=== PATIENT | female | born 1995 ===

== ENCOUNTER → 2017-04-02 | Outpatient (REF) | LOC: WSOH 09:08 | DX: Z02.1 Encounter for pre-employment examination (principal) ==

== ENCOUNTER → 2017-04-05 | Outpatient (REF) | LOC: WSOH 11:01 | DX: Z01.89 Encounter for other specified special examinations (principal) ==

== ENCOUNTER → 2017-05-04 | Outpatient (REF) | LOC: WSOH 08:09 | DX: Z02.89 Encounter for other administrative examinations (principal) ==

== ENCOUNTER → 2017-06-28 | Outpatient (REF) | LOC: WSOH 16:00 | DX: Z02.89 Encounter for other administrative examinations (principal) ==